=== PATIENT | male | born 1955 | race Caucasian/White ===

== ENCOUNTER → 2016-02-20 | Outpatient (CLI) | payer BC ==
--- NOTE | 2016-02-20 09:53 | MRI ---
Study: MRI of the Right Elbow. Indication: RT ELBOW PAIN Technique: Multiplanar, multi sequence MRI of the right elbow was obtained without intravenous contrast. Comparison: None. 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 No full-thickness extension or tendon retraction. Radial collateral ligament thickened indicating sequelae previous sprain. Common flexor tendon origin and ulnar collateral ligament intact. Biceps, brachialis, and triceps tendon insertions intact. No acute fracture, osseous contusion, or advanced osteoarthritis of the elbow. Ulnar nerve unremarkable. 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 Electronically signed by: Wenceslao Kim MD 02/20/2016 09:51
== END ==
LOC: MRI 08:05
PROVIDERS: ATTEND Family Medicine
DX: S53.431A Radial collateral ligament sprain of right elbow, initial encounter (principal); M77.8 Other enthesopathies, not elsewhere classified

== ENCOUNTER → 2016-07-23 | Outpatient (CLI) | payer BC | END | disposition home or self-care (01) | LOC: LAB.O 07:16 | PROVIDERS: ATTEND Family Medicine | DX: R73.9 Hyperglycemia, unspecified (principal); Z12.5 Encounter for screening for malignant neoplasm of prostate; I10 Essential (primary) hypertension ==

== ENCOUNTER → 2017-06-26 | Outpatient (CLI) | payer BC | LOC: GMAM 11:12 | PROVIDERS: ATTEND Family Medicine | DX: T60 Toxic effect of pesticides (principal); R00.2 Palpitations ==

== ENCOUNTER → 2017-08-12 | Outpatient (CLI) | payer BC ==
--- NOTE | 2017-08-12 12:18 | CT ---
EXAM DESCRIPTION: CTA Neck: Computed Tomography. CLINICAL HISTORY: CAROTID ARTERY STENOSIS COMPARISON: None. TECHNIQUE: Spiral, axial 2.5 mm scans through the neck soft tissues after bolus infusion of IV contrast. Coronal and sagittal 2.0 mm reconstructions. 3D volume rendering images rotating and tumbling format . Percentage of stenosis recorded will be based upon NASCET criteria. Total Exam DLP: 877.95 mGy-cm. This exam was performed according to our departmental CT dose-optimization program which includes automated exposure control, adjustment of the mA and/or kV according to patient size and/or use of iterative reconstruction technique; to reduce radiation dose to as low as reasonably achievable (ALARA). FINDINGS: Minimal atherosclerotic calcification and intimal wall thickening of the proximal left CCA. In the proximal ICA, and ulceration containing contrast is noted in the medial wall just past the bifurcation with minimal atherosclerotic calcification. Slightly more distal is another ulceration with a posterior channel of contrast for a short distance terminating in a calcification. Slightly more distally Is a larger calcification on the medial wall with 45% diameter stenosis. Calcifications and narrowing in the left carotid siphon. Intimal wall thickening around the right CCA bifurcation, with approximately 20% diameter stenosis dilation of the more distal ICA followed by calcification in interval wall thickening of the lateral wall. 27% diameter stenosis more distally., More distal is another calcification on the medial wall with a 30% diameter stenosis. Calcification just proximal to the transverse canal with a 25% diameter stenosis. Approximately 30% diameter stenosis in the mid carotid siphon. Bilateral intracranial ICAs with normal bifurcations possibly small rudimentary bilateral posterior communicating arteries. No intracranial stenoses or aneurysms mass effect or vasculitis. Bilateral origins of the vertebral arteries are unremarkable. Minimal calcification proximal right vertebral artery, and in the skull base. Right Vertebral artery is slightly larger caliber in the intervertebral foramina, and entering the foramen magnum. Vertebrobasilar junction and basilar bifurcation are unremarkable. Branch vessels are negative. No significant stenosis, aneurysm, mass effect, or vasculitis. Airways negative. Neck soft tissues are unremarkable. Thyroid is negative. Mastoid air cells are unremarkable. Emphysematous blebs in the lungs bilateral are pleural-based. Minimal kyphosis of the cervical spine. Narrowing of the C5-6 and C6-7 disc spaces with posterior spurs narrowing the canal and foramina. IMPRESSION: 1. Ulcerations and small rudimentary channels of contrast extending into the wall of the proximal left ICA. Maximum diameter stenosis is 45%. Vascular consult is recommended. Maximum diameter stenosis of the right common carotid bifurcation and proximal right ICA is 30%. 2. No significant abnormalities of the proximal vertebral arteries are of the vertebrobasilar system. Right vertebral artery is slightly dominant. 3. Pleural-based emphysematous changes in the upper lung araujo. Spondylosis at C5-6 and C6-7. No definitive masses in the neck soft tissues. Electronically signed by: Tawanda Arrington MD 08/12/2017 12:17 PM CDT
== END ==
LOC: CT 07:52
PROVIDERS: ATTEND Family Medicine
DX: I65.23 Occlusion and stenosis of bilateral carotid arteries (principal)

== ENCOUNTER → 2018-03-17 | Outpatient (CLI) | payer BC | LOC: GMAM 10:50 | PROVIDERS: ATTEND Family Medicine | DX: Z12.5 Encounter for screening for malignant neoplasm of prostate (principal) ==

== ENCOUNTER → 2018-05-12 | Outpatient (CLI) | payer BC, OTHER ==
--- NOTE | 2018-05-12 15:45 | CT ---
EXAM: Abdomen/Pelvis w/wo Contrast CLINICAL HISTORY: MICROSCOPIC HEMATURIA COMPARISON STUDY: None TECHNICAL: Pre and post IV contrast images were performed through the abdomen and pelvis. Delayed urogram images were performed Sagittal and coronal reconstructions were obtained. FINDINGS: The visible portion of the chest is without acute abnormality. There are multiple tiny calcified granulomata. A small hiatal hernia is present. The heart is not enlarged. The liver, spleen, pancreas, adrenal glands, and kidneys enhance appropriately and demonstrate no acute abnormality. There are no urinary calculi. There is no hydronephrosis. There is no enhancing renal lesion. Delayed excretion images show no hydronephrosis, ureteral obstruction. Duplication of the right collecting system is noted with no visible ureteral abnormality. The gallbladder is intact and there is no evidence of biliary dilatation. There is no bowel obstruction or free air. Diverticulosis extends along the descending colon and sigmoid colon. There is no acute inflammatory process. The appendix is visible and normal. The aorta, IVC and retroperitoneum are negative. Bilateral iliac artery stents are present. Structures within the pelvis are negative. Mild prostate calcifications are present. Fat extends into both inguinal canals. The visible osseous structures are negative. IMPRESSION: 1. No urinary calculi, renal mass or abnormality to explain hematuria. 2. Small hiatal hernia. 3. Moderate to severe diverticulosis. This exam was performed according to our departmental dose-optimization program, which includes automated exposure control, adjustment of the mA and/or kV according to patient size and/or use of iterative reconstruction technique. Electronically signed by: Edilberto Clarke MD 05/12/2018 3:42 PM CDT
== END ==
LOC: CT 07:59
PROVIDERS: ATTEND Urology
DX: R31.21 Asymptomatic microscopic hematuria (principal); K44.9 Diaphragmatic hernia without obstruction or gangrene; K57.30 Diverticulosis of large intestine without perforation or abscess without bleeding

== ENCOUNTER → 2019-03-26 | Outpatient (CLI) | payer BC | LOC: GMAM 10:32 | PROVIDERS: ATTEND Family Medicine | DX: Z12.5 Encounter for screening for malignant neoplasm of prostate (principal); E29.1 Testicular hypofunction ==